=== PATIENT | female | born 1970 | race Caucasian/White ===

== ENCOUNTER → 2018-03-07 13:23 | Outpatient (CLI) | payer OTHER, SELFPAY ==
--- NOTE | 2018-03-07 13:24 | DI.MRI.S_ITS ---
PROCEDURE: MR LUMBAR SPINE WO CON INDICATIONS: Acute lumbar radiculopathy TECHNIQUE: Noncontrast sagittal T1 spin echo and T2 fast echo, sagittal STIR, axial T1 and T2 fast spin echo through the lumbar spine. In cases with scoliosis, additional coronal T2 fast spin echo may be performed. COMPARISON: [facility], MR, L-SPINE WITHOUT CONTRAST, 03/10/2010, 7:08. [facility], CT, ABDOMEN/PELVIS WITH CONTRAST, 06/27/2010, 19:21. FINDINGS: Image quality: Excellent. Alignment and Curvature: There is loss of normal lumbar lordosis. There is minimal, grade 1 retrolisthesis of L3 on L4 and L5 on S1. Bone Marrow: Marrow is of normal overall signal. No acute vertebral body compression fractures. Mild reactive signal within the endplates adjacent to the L3-L4, L4-L5, and L5-S1 intervertebral discs is present. Spinal Cord: Conus medullaris terminates at the L1-L2 disc space level. Visualized cord demonstrates normal signal and size. Paraspinous Soft Tissues: No paravertebral masses. L1-L2: Normal appearance. L2-L3: Mild facet and ligament flavum hypertrophy. No significant canal, nor foraminal stenosis. No change. L3-L4: Moderate disc desiccation. Mild diffuse disc bulge a superimposed small central protrusion. Mild bilateral facet hypertrophy. Increased, mild canal stenosis. No foraminal stenosis. L4-L5: Moderate disc desiccation. Mild diffuse disc bulge with superimposed broad-based right far lateral protrusion. Mild bilateral facet hypertrophy. Mild canal stenosis. Mild bilateral foraminal stenosis. L5-S1: Moderate disc desiccation. Mild diffuse disc bulge with superimposed small central protrusion. Mild bilateral facet hypertrophy. No significant canal stenosis. Mild foraminal stenosis bilaterally. No change. IMPRESSION: 1. Multilevel degenerative disc and facet disease, as well as ligamentum flavum hypertrophy and epidural lipomatosis. 2. Mild multilevel canal and foraminal stenoses. No neural impingement. Dictated by: Krishan Sung M.D. on 03/07/2018 at 14:37 Approved by: Krishan Sung M.D. on 03/07/2018 at 14:45
== END ==
PROVIDERS: Family Provider Family Medicine; PCP Family Medicine; Visit Provider Registered Nurse
DX: M51.16 Intervertebral disc disorders with radiculopathy, lumbar region (principal); M51.17 Intervertebral disc disorders with radiculopathy, lumbosacral region; E88.2 Lipomatosis, not elsewhere classified; M48.061 Spinal stenosis, lumbar region without neurogenic claudication; M48.07 Spinal stenosis, lumbosacral region
CPT/HCPCS: 72148

== ENCOUNTER 2018-04-18 08:50 | Emergency (ER) | payer OTHER, SELFPAY ==
[2018-04-18 09:03] VITALS: BP 158/97; PULSE 109; RESP 16; TEMP 37.2; O2SAT 99; BMI 32.8
--- NOTE | 2018-04-18 10:01 | ED_ITS ---
HPI - Back Pain/Injury General Chief Complaint: Back Pain/Injury Stated Complaint: SPINAL INJURY Time Seen by Provider: 04/18/18 09:47 Source: patient Mode of arrival: ambulatory Limitations: no limitations History of Present Illness HPI Narrative: Patient is a 47-year-old female who presents with back pain. She says she injured it about a month ago she was doing well until 2 days ago when her dog hit her. She now has significant pain down her left leg. No changes in bowel or bladder habits. She says the numbness tingling sharp shooting pain goes down the front of her leg. She said is quite unbearable. She has been taking ibuprofen 600 mg as needed and it does not seem to be helping. MD Complaint: back pain Related Data Home Medications Medication Instructions Recorded Confirmed omega-3 acid ethyl esters [Lovaza] 1 gm PO QDAY #0 10/16/12 02/28/18 pyridoxine (vitamin B6) #0 10/16/12 02/28/18 Previous Rx's Medication Instructions Recorded hydrocodone 5 mg-acetaminophen 325 1 tab PO Q6H PRN #30 tab 03/03/18 mg tablet diazepam [Valium] 5 mg PO BID PRN #10 tab 04/18/18 diazepam [Valium] 5 mg PO Q12HR PRN #10 tab 04/18/18 meloxicam [Mobic] 7.5 mg PO DAILY PRN #20 tab 04/18/18 meloxicam [Mobic] 7.5 mg PO DAILY PRN #30 tab 04/18/18 prednisone 40 mg PO DAILY #10 tab 04/18/18 Allergies Allergy/AdvReac Type Severity Reaction Status Date / Time Penicillins [PENICILLINS] Allergy Unknown Verified 04/18/18 09:16 Review of Systems Review of Systems GENERAL: Denies chills, fatigue, malaise, fever, sweats, travel HEENT: Denies sinus pain, ear pain, sore throat, difficulty swallowing, neck pain RESPIRATORY: Denies dyspnea, cough, wheezing, hemoptysis, sputum. CARDIOVASCULAR: Denies chest pain, palpitations, orthopnea, edema GASTROINTESTINAL: Denies nausea, vomiting, abdominal pain, diarrhea, constipation, melena. : Denies dysuria, frequency, incontinence, hematuria, urinary retention, flank pain. MUSCULOSKELETAL: See HPI SKIN: No rash, no erythema, no pruritus NEUROLOGIC: Denies weakness, dizziness, headache, numbness, change in speech, confusion PSYCHIATRIC: No concerning psychosocial issues. 12 point review of systems is negative except for those stated above and HPI PFSH Medical History Cervical spine disease (Chronic) Foot pain (Chronic 2011) Hayfever (Chronic) History of heavy periods (Chronic) Lump in neck (Chronic 07/2015) Migraines (Chronic 2006) PTSD (post-traumatic stress disorder) (Chronic) Painful menstrual periods (Chronic) Abnormal Pap smear of cervix (Resolved ~2004) Chicken pox (Resolved 1978) Ectopic (Resolved 2005) HPV (human papilloma virus) infection (Resolved) Ovarian cyst (Resolved 11/2015) PID (acute pelvic inflammatory disease) (Resolved 11/21/15) Plantar fasciitis (Resolved 2011) Plantar warts (Resolved) Surgical History Anesthesia complication (Resolved) History of unilateral salpingectomy (Resolved 2005) Status post cholecystectomy (Resolved 2004) Family History Grandmother Parkinson's disease Broken hip Father Gangrene Mother Stroke Grandfather Brain tumor Sister No problems noted. Sister No problems noted. Grandmother No problems noted. Social History Smoking Status: Current some day smoker alcohol intake: never substance use type: does not use Family History Grandmother Parkinson's disease Broken hip Father Gangrene Mother Stroke Grandfather Brain tumor Sister No problems noted. Sister No problems noted. Grandmother No problems noted. Social History Smoking Status: Current some day smoker alcohol intake: never substance use type: does not use Exam Initial Vital Signs Initial Vital Signs: Vital Signs Temperature 98.9 F 04/18/18 09:03 Pulse Rate 109 H 04/18/18 09:03 Respiratory Rate 16 04/18/18 09:03 Blood Pressure 158/97 H 04/18/18 09:03 Pulse Oximetry 99 04/18/18 09:03 GENERAL: Overweight lying on right side appears in pain CARDIOVASCULAR: peripheral pulses in tact, cap refill <2 sec RESPIRATORY: No respiratory distress, speaks in full sentences without difficulty BACK: Mild midline vertebral tenderness no guarding no rebound no sign of trauma. Sensation in lower extremities intact. Deep tendon reflexes equal 2/4 EXTREMITIES: Normal range of motion, no clubbing or edema. Neurovascularly intact NEUROLOGICAL: Cranial nerves II through XII grossly intact. Normal gait and speech. SKIN: Warm, dry, no petechiae, no rashes or lesions. Course Orders Ordered: Discontinued Medications Diazepam (Valium) 5 mg PO NOW ONE Stop: 04/18/18 09:52 Last Admin: 04/18/18 10:14 Dose: 5 mg Ketorolac Tromethamine (Toradol) 60 mg IM NOW ONE Stop: 04/18/18 09:52 Last Admin: 04/18/18 10:14 Dose: 60 mg Vital Signs - 8 hr 04/18/18 09:03 04/18/18 10:50 Temperature 98.9 F Pulse Rate 109 H 79 Respiratory Rate 16 16 Blood Pressure 158/97 H Blood Pressure [Left Arm] 148/84 H Pulse Oximetry 99 97 MDM - Back Pain/Injury MDM Narrative Medical decision making narrative: Discussed with patient light activity and stretching such as yoga. We discussed warning signs and when to return to the ED. Discharge Plan Departure Patient Disposition: Home Clinical Impression: Lumbar radiculopathy, Back pain Discharge Date/Time: 04/18/18 11:32 Interventions: ED Discharge Assessment Last Done: 04/18/18 11:26 Instructions: Low Back Pain Activity Restrictions/Additional Instructions: *You have been diagnosed with low back pain with radiculopathy *What to do: Increase activity as tolerated, light activity is encouraged, heating pad *Continue to take medications as directed--> faxed to [facility] in [place] Mobic 7.5mg once a day-do not combine with other NSAIDs such as Motrin, ibuprofen, naproxen etc Valium 5 mg every 12 hr if needed for severe muscle spasm do not drive while taking Prednisone 40 mg once a day for 5 days *Follow up with your primary care provider in 2-3 days *Return to ER if you should have increasing weakness, loss of urine or stool, or any new, worsening or concerning symptoms Prescriptions: New meloxicam [Mobic] 7.5 mg tablet 7.5 mg PO DAILY PRN (Reason: pain (scale score 4-6)) Qty: 30 RF: 0 diazepam [Valium] 5 mg tablet 5 mg PO Q12HR PRN (Reason: muscle spasm) Qty: 10 RF: 0 prednisone 20 mg tablet 40 mg PO DAILY Qty: 10 RF: 0 meloxicam [Mobic] 7.5 mg tablet 7.5 mg PO DAILY PRN (Reason: pain (scale score 4-6)) Qty: 20 RF: 0 diazepam [Valium] 5 mg tablet 5 mg PO BID PRN (Reason: muscle spasm) Qty: 10 RF: 0 Discontinued dexamethasone [Decadron] 4 mg tablet See Label Instructions PO ONCE Qty: 12 RF: 0 No Action omega-3 acid ethyl esters [Lovaza] 1 GM capsule 1 gm PO QDAY Qty: 0 RF: 0 pyridoxine (vitamin B6) 25 MG tablet Qty: 0 RF: 0 hydrocodone-acetaminophen 5-325 mg tablet 1 tab PO Q6H PRN (Reason: pain) Qty: 30 RF: 0 Referrals: Isabel Sadler DO [Primary Care Provider] -
[2018-04-18] MEDS: KETOROLAC 60 MG/2 ML VIAL IM (10:14)
[2018-04-18] MEDS: diazePAM 5 MG TABLET PO (10:14)
[2018-04-18 10:50] VITALS: BP 148/84; PULSE 79; RESP 16; O2SAT 97
== END 2018-04-18 11:32 | disposition home or self-care (01) ==
PROVIDERS: Emergency Provider Emergency Medicine; Family Provider Family Medicine; PCP Family Medicine
DX: M54.16 Radiculopathy, lumbar region (principal)
CPT/HCPCS: 96372; 99282; 99283; J1885

== ENCOUNTER 2018-04-22 16:45 | Emergency (ER) | payer OTHER, SELFPAY ==
[2018-04-22 16:54] VITALS: BP 154/101; PULSE 96; RESP 14; TEMP 36.2; O2SAT 96; BMI 32.8
--- NOTE | 2018-04-22 18:37 | DI.RAD.S_ITS ---
PROCEDURE: XR HIP W PEL IF DONE RT 2V INDICATIONS: CHRONIC PAIN TECHNIQUE: 2 views of the hip were acquired. COMPARISON: None. FINDINGS: Bones: No fractures or dislocations. No suspicious bony lesions. The visualized pelvic ring appears intact. Soft tissues: No suspicious soft tissue calcifications or masses. IMPRESSION: No hip fracture or dislocation. No evidence of avascular necrosis. Dictated by: Anthony Connolly M.D. on 04/22/2018 at 19:13 Approved by: Anthony Connolly M.D. on 04/22/2018 at 19:14
--- NOTE | 2018-04-22 18:51 | ED.BACK ---
HPI - Back Pain/Injury <CAYDEN Correia - Last Filed: 04/22/18 22:05> General Chief Complaint: Back Pain/Injury Stated Complaint: States something going on with sciatica Time Seen by Provider: 04/22/18 18:43 Source: patient Mode of arrival: ambulatory Limitations: no limitations History of Present Illness HPI Narrative: 47-year-old female history of fibromyalgia here for complaint of pain into her left lower back area and to her left hip area. She was seen in the emergency room last week and was placed on a short course of prednisone Valium and Mobic for her symptoms. MRI that was completed in February shows radiculopathy and stenosis to the lumbar spine area. She reports that over week ago she was ran into by a dog onto her left hip. She reports that he she has decreased ability to ambulate due to pain to the left hip left lower back area. She also reports that the pain radiates down into her left lower leg. She denies any new trauma. She has not seen her primary care provider Orthopedics for this as of yet. No other concerns or complaints at this timeframe. No loss of bladder or bowel control. Related Data Home Medications Medication Instructions Recorded Confirmed omega-3 acid ethyl esters [Lovaza] 1 gm PO QDAY #0 10/16/12 02/28/18 pyridoxine (vitamin B6) #0 10/16/12 02/28/18 Previous Rx's Medication Instructions Recorded hydrocodone 5 mg-acetaminophen 325 1 tab PO Q6H PRN #30 tab 03/03/18 mg tablet diazepam [Valium] 5 mg PO BID PRN #10 tab 04/18/18 meloxicam [Mobic] 7.5 mg PO DAILY PRN #20 tab 04/18/18 prednisone 40 mg PO DAILY #10 tab 04/18/18 cyclobenzaprine 5 mg tablet 5 mg PO TID PRN #20 tab 04/19/18 cyclobenzaprine 10 mg PO TID PRN #20 tab 04/22/18 hydrocodone-acetaminophen [Cranberry] 1 tab PO Q6H PRN #10 tab 04/22/18 Allergies Allergy/AdvReac Type Severity Reaction Status Date / Time Penicillins [PENICILLINS] Allergy Unknown Verified 04/22/18 17:01 Review of Systems <CAYDEN Correia - Last Filed: 04/22/18 22:05> Constitutional Denies chills, Denies fever(s), Denies lethargy and Denies weakness Eyes Denies change in vision, Denies eye discharge, Denies irritation and Denies loss of vision ENT Ears, Nose, Mouth, and Throat: Denies change in voice, Denies neck pain and Denies sore throat Cardiovascular Denies chest pain, Denies irregular heart rhythm, Denies lightheadedness, Denies palpitations, Denies dyspnea, Denies dyspnea on exertion and Denies orthopnea Respiratory Denies cough, Denies dyspnea, Denies dyspnea on exertion and Denies wheezing Gastrointestinal Gastrointestinal: Denies abdominal pain, Denies change in bowel habits, Denies diarrhea, Denies nausea and Denies vomiting Genitourinary Denies hematuria, Denies flank pain, Denies urinary incontinence and Denies urinary urgency Musculoskeletal Denies neck pain Comments: Lower back and left hip pain Integumentary/Breasts Denies pruritus, Denies erythema, Denies rash and Denies wounds Neurologic Denies loss of vision and Denies weakness Endocrine Denies palpitations Hematologic/Lymphatic Denies easy bruising Allergic/Immunologic Denies wheezing Exam <CAYDEN Correia - Last Filed: 04/22/18 22:05> Initial Vital Signs Initial Vital Signs: Vital Signs Temperature 97.2 F L 04/22/18 16:54 Pulse Rate 96 H 04/22/18 16:54 Respiratory Rate 14 04/22/18 16:54 Blood Pressure 154/101 H 04/22/18 16:54 Pulse Oximetry 96 04/22/18 16:54 Const General: cooperative and well developed Nutritional Appearance: well nourished Orientation: alert, awake, oriented x3 and not confused [facility] Mouth: oral mucosae normal, oropharynx normal and moist mucous membranes Eyes Conjunctivae: conjunctivae normal Sclera: sclerae normal Pupils: PERRL EOM: EOM intact bilaterally Resp Effort & Inspection: normal respiratory effort, able to speak in complete sentences, no respiratory distress and no use of accessory muscles Auscultation: clear to auscultation bilaterally, no rales, no rhonchi and no wheezes Cardio Rate: regular rate Rhythm: regular rhythm Heart Sounds: no click, no gallops, no murmurs and no rubs Pulses: normal peripheral pulses Back/Spine/Pelvis Other: Lower back with no signs of trauma. No ecchymosis. Tenderness to the left lumbar paraspinal are distal sensation is intact. Distal pulses are intact. Distal range of motion is intact. a Skin General: no rashes or lesions noted, No jaundice and No petechiae Neuro General: alert, oriented x3, gait normal and no focal motor deficits Speech: speech normal Extrem Other: Left hip with no signs of trauma. No ecchymosis. No swelling. Distal sensation is intact. Distal range of motion is intact. Distal pulses are intact. <Marylou Floyd DO - Last Filed: 04/23/18 00:38> Initial Vital Signs Initial Vital Signs: Vital Signs Temperature 97.2 F L 04/22/18 16:54 Pulse Rate 96 H 04/22/18 16:54 Respiratory Rate 14 04/22/18 16:54 Blood Pressure 154/101 H 04/22/18 16:54 Pulse Oximetry 96 04/22/18 16:54 Course <CAYDEN Correia - Last Filed: 04/22/18 22:05> Orders Ordered: ED Orders 04/22/18 18:37 XR hip w pel if done RT 2V Stat 04/22/18 19:34 US periph venous low extrem lt Stat Discontinued Medications Cyclobenzaprine HCl (Flexeril) 10 mg PO NOW ONE Stop: 04/22/18 20:52 Last Admin: 04/22/18 20:57 Dose: 10 mg Vital Signs - 8 hr 04/22/18 16:54 04/22/18 19:14 04/22/18 21:21 Temperature 97.2 F L 97.7 F Pulse Rate 96 H 77 77 Respiratory Rate 14 18 18 Blood Pressure 154/101 H 147/94 H Blood Pressure [Left Arm] 145/79 H Pulse Oximetry 96 98 96 <DO Aissatou Melchor Last Filed: 04/23/18 00:38> Orders Ordered: ED Orders 04/22/18 18:37 XR hip w pel if done RT 2V Stat 04/22/18 19:34 US periph venous low extrem lt Stat Discontinued Medications Cyclobenzaprine HCl (Flexeril) 10 mg PO NOW ONE Stop: 04/22/18 20:52 Last Admin: 04/22/18 20:57 Dose: 10 mg Vital Signs - 8 hr 04/22/18 16:54 04/22/18 19:14 04/22/18 21:21 Temperature 97.2 F L 97.7 F Pulse Rate 96 H 77 77 Respiratory Rate 14 18 18 Blood Pressure 154/101 H 147/94 H Blood Pressure [Left Arm] 145/79 H Pulse Oximetry 96 98 96 MDM - Back Pain/Injury <CAYDEN Correia - Last Filed: 04/22/18 22:05> Imaging Data Left hip: Radiologist's impression: [address] [address] XRay Report Signed Patient: EnzoMadiha [facility]#: [id number] : 1970Acct:[id number] Age/Sex: 47 / FDate of Service: 04/22/18 Loc: ED Accession Number: [id number] Procedure: XR hip w pel if done RT 2V Ordering Provider: Marylou Floyd D.O. PROCEDURE: XR HIP W PEL IF DONE RT 2V INDICATIONS: CHRONIC PAIN TECHNIQUE: 2 views of the hip were acquired. COMPARISON: None. FINDINGS: Bones: No fractures or dislocations. No suspicious bony lesions. The visualized pelvic ring appears intact. Soft tissues: No suspicious soft tissue calcifications or masses. IMPRESSION: No hip fracture or dislocation. No evidence of avascular necrosis. Dictated by: Anthony Connolly M.D. on 04/22/2018 at 19:13 Approved by: Anthony Connolly M.D. on 04/22/2018 at 19:14 Venous US: Radiologist's impression: [address] [address] Ultrasound Report Signed Patient: EnzoMadiha [facility]#: [id number] : 1970Acct:[id number] Age/Sex: 47 / FDate of Service: 04/22/18 Loc: ED Accession Number: [id number] Procedure: US periph venous low extrem lt Ordering Provider: Carlos Mtz PROCEDURE: US PERIPH VENOUS LOW EXTREM LT INDICATIONS: PERSISTENT LEFT LEG PAIN TECHNIQUE: Real-time imaging, as well as color and pulse Doppler interrogation, were performed of the lower extremity deep veins from the inguinal ligament to the popliteal fossa. COMPARISON: None. FINDINGS: The deep veins are normally compressible, and free of intraluminal thrombus. Color and pulse Doppler demonstrate normal phasic intraluminal flow. There is normal augmentation response to distal compression maneuver. IMPRESSION: No evidence of DVT in the visualized left lower extremity veins. Dictated by: Anthony Connolly M.D. on 04/22/2018 at 20:26 Approved by: Anthony Connolly M.D. on 04/22/2018 at 20:29 [facility] Narrative Medical decision making narrative: X-ray of the left hip was obtained was negative for any acute fractures or findings. Ultrasound left lower extremity was obtained to rule out DVT it was also negative. Signs and symptoms presents exacerbation of a chronic lower back pain. She is prescribed cyclobenzaprine to help with any muscle spasm or tenderness. Small amount of Cranberry was provided for breakthrough pain. Not be used to conjunction with the cyclobenzaprine. Follow up with primary care provider later this week for re-evaluation. For any worsening symptoms return to the emergency room. Discharge Plan Departure Patient Disposition: Home Clinical Impression: Lower back pain Discharge Date/Time: 04/22/18 21:23 Interventions: ED Discharge Assessment Last Done: 04/22/18 21:21 Instructions: DI for Low Back Pain Activity Restrictions/Additional Instructions: X-ray of the left hip was obtained was negative for any acute fractures or dislocations. Ultrasound left lower extremity was obtained was negative for any clots. Signs and symptoms presents as exacerbating of chronic lumbar pain. Follow up with primary care provider next week. Due to chronic nature of pain may be helpful to have referral to Orthopedics. Physical therapy may also be helpful. Year prescribed a muscle relaxer called cyclobenzaprine use as directed. Small amount of Cranberry is provided for breakthrough pain not covered by Tylenol do not use in conjunction with the muscle relaxer. For any worsening symptoms return to the emergency room. Gentle range of motion to painful areas to keep muscles loose. Rest area. Prescriptions: New cyclobenzaprine 10 mg tablet 10 mg PO TID PRN (Reason: muscle spasm) Qty: 20 RF: 0 hydrocodone-acetaminophen [Cranberry] 5-325 mg tablet 1 tab PO Q6H PRN (Reason: pain) Qty: 10 RF: 0 No Action omega-3 acid ethyl esters [Lovaza] 1 GM capsule 1 gm PO QDAY Qty: 0 RF: 0 pyridoxine (vitamin B6) 25 MG tablet Qty: 0 RF: 0 hydrocodone-acetaminophen 5-325 mg tablet 1 tab PO Q6H PRN (Reason: pain) Qty: 30 RF: 0 cyclobenzaprine 5 mg tablet 5 mg PO TID PRN (Reason: muscle spasm) Qty: 20 RF: 0 prednisone 20 mg tablet 40 mg PO DAILY Qty: 10 RF: 0 meloxicam [Mobic] 7.5 mg tablet 7.5 mg PO DAILY PRN (Reason: pain (scale score 4-6)) Qty: 20 RF: 0 diazepam [Valium] 5 mg tablet 5 mg PO BID PRN (Reason: muscle spasm) Qty: 10 RF: 0 Referrals: Isabel Sadler DO [Primary Care Provider] - <Marylou Floyd DO - Last Filed: 04/23/18 00:38> Cosign ED Attending Brookeature Attestation: I was immediately available in the department for consultation. Documentation has been reviewed. I agree with assessment and plan.
--- NOTE | 2018-04-22 18:56 | ED_ITS ---
HPI - Back Pain/Injury <CAYDEN Correia - Last Filed: 04/22/18 22:05> General Chief Complaint: Back Pain/Injury Stated Complaint: States something going on with sciatica Time Seen by Provider: 04/22/18 18:43 Source: patient Mode of arrival: ambulatory Limitations: no limitations History of Present Illness HPI Narrative: 47-year-old female history of fibromyalgia here for complaint of pain into her left lower back area and to her left hip area. She was seen in the emergency room last week and was placed on a short course of prednisone Valium and Mobic for her symptoms. MRI that was completed in February shows radiculopathy and stenosis to the lumbar spine area. She reports that over week ago she was ran into by a dog onto her left hip. She reports that he she has decreased ability to ambulate due to pain to the left hip left lower back area. She also reports that the pain radiates down into her left lower leg. She denies any new trauma. She has not seen her primary care provider Orthopedics for this as of yet. No other concerns or complaints at this timeframe. No loss of bladder or bowel control. Related Data Home Medications Medication Instructions Recorded Confirmed omega-3 acid ethyl esters [Lovaza] 1 gm PO QDAY #0 10/16/12 02/28/18 pyridoxine (vitamin B6) #0 10/16/12 02/28/18 Previous Rx's Medication Instructions Recorded hydrocodone 5 mg-acetaminophen 325 1 tab PO Q6H PRN #30 tab 03/03/18 mg tablet diazepam [Valium] 5 mg PO BID PRN #10 tab 04/18/18 meloxicam [Mobic] 7.5 mg PO DAILY PRN #20 tab 04/18/18 prednisone 40 mg PO DAILY #10 tab 04/18/18 cyclobenzaprine 5 mg tablet 5 mg PO TID PRN #20 tab 04/19/18 cyclobenzaprine 10 mg PO TID PRN #20 tab 04/22/18 hydrocodone-acetaminophen [Belle] 1 tab PO Q6H PRN #10 tab 04/22/18 Allergies Allergy/AdvReac Type Severity Reaction Status Date / Time Penicillins [PENICILLINS] Allergy Unknown Verified 04/22/18 17:01 Review of Systems <CAYDEN Correia - Last Filed: 04/22/18 22:05> Constitutional Denies chills, Denies fever(s), Denies lethargy and Denies weakness Eyes Denies change in vision, Denies eye discharge, Denies irritation and Denies loss of vision ENT Ears, Nose, Mouth, and Throat: Denies change in voice, Denies neck pain and Denies sore throat Cardiovascular Denies chest pain, Denies irregular heart rhythm, Denies lightheadedness, Denies palpitations, Denies dyspnea, Denies dyspnea on exertion and Denies orthopnea Respiratory Denies cough, Denies dyspnea, Denies dyspnea on exertion and Denies wheezing Gastrointestinal Gastrointestinal: Denies abdominal pain, Denies change in bowel habits, Denies diarrhea, Denies nausea and Denies vomiting Genitourinary Denies hematuria, Denies flank pain, Denies urinary incontinence and Denies urinary urgency Musculoskeletal Denies neck pain Comments: Lower back and left hip pain Integumentary/Breasts Denies pruritus, Denies erythema, Denies rash and Denies wounds Neurologic Denies loss of vision and Denies weakness Endocrine Denies palpitations Hematologic/Lymphatic Denies easy bruising Allergic/Immunologic Denies wheezing Exam <CAYDEN Correia - Last Filed: 04/22/18 22:05> Initial Vital Signs Initial Vital Signs: Vital Signs Temperature 97.2 F L 04/22/18 16:54 Pulse Rate 96 H 04/22/18 16:54 Respiratory Rate 14 04/22/18 16:54 Blood Pressure 154/101 H 04/22/18 16:54 Pulse Oximetry 96 04/22/18 16:54 Const General: cooperative and well developed Nutritional Appearance: well nourished Orientation: alert, awake, oriented x3 and not confused [facility] Mouth: oral mucosae normal, oropharynx normal and moist mucous membranes Eyes Conjunctivae: conjunctivae normal Sclera: sclerae normal Pupils: PERRL EOM: EOM intact bilaterally Resp Effort & Inspection: normal respiratory effort, able to speak in complete sentences, no respiratory distress and no use of accessory muscles Auscultation: clear to auscultation bilaterally, no rales, no rhonchi and no wheezes Cardio Rate: regular rate Rhythm: regular rhythm Heart Sounds: no click, no gallops, no murmurs and no rubs Pulses: normal peripheral pulses Back/Spine/Pelvis Other: Lower back with no signs of trauma. No ecchymosis. Tenderness to the left lumbar paraspinal are distal sensation is intact. Distal pulses are intact. Distal range of motion is intact. a Skin General: no rashes or lesions noted, No jaundice and No petechiae Neuro General: alert, oriented x3, gait normal and no focal motor deficits Speech: speech normal Extrem Other: Left hip with no signs of trauma. No ecchymosis. No swelling. Distal sensation is intact. Distal range of motion is intact. Distal pulses are intact. <Marylou Floyd DO - Last Filed: 04/23/18 00:38> Initial Vital Signs Initial Vital Signs: Vital Signs Temperature 97.2 F L 04/22/18 16:54 Pulse Rate 96 H 04/22/18 16:54 Respiratory Rate 14 04/22/18 16:54 Blood Pressure 154/101 H 04/22/18 16:54 Pulse Oximetry 96 04/22/18 16:54 Course <CAYDEN Correia - Last Filed: 04/22/18 22:05> Orders Ordered: ED Orders 04/22/18 18:37 XR hip w pel if done RT 2V Stat 04/22/18 19:34 US periph venous low extrem lt Stat Discontinued Medications Cyclobenzaprine HCl (Flexeril) 10 mg PO NOW ONE Stop: 04/22/18 20:52 Last Admin: 04/22/18 20:57 Dose: 10 mg Vital Signs - 8 hr 04/22/18 16:54 04/22/18 19:14 04/22/18 21:21 Temperature 97.2 F L 97.7 F Pulse Rate 96 H 77 77 Respiratory Rate 14 18 18 Blood Pressure 154/101 H 147/94 H Blood Pressure [Left Arm] 145/79 H Pulse Oximetry 96 98 96 <DO Aissatou Melchor Last Filed: 04/23/18 00:38> Orders Ordered: ED Orders 04/22/18 18:37 XR hip w pel if done RT 2V Stat 04/22/18 19:34 US periph venous low extrem lt Stat Discontinued Medications Cyclobenzaprine HCl (Flexeril) 10 mg PO NOW ONE Stop: 04/22/18 20:52 Last Admin: 04/22/18 20:57 Dose: 10 mg Vital Signs - 8 hr 04/22/18 16:54 04/22/18 19:14 04/22/18 21:21 Temperature 97.2 F L 97.7 F Pulse Rate 96 H 77 77 Respiratory Rate 14 18 18 Blood Pressure 154/101 H 147/94 H Blood Pressure [Left Arm] 145/79 H Pulse Oximetry 96 98 96 MDM - Back Pain/Injury <CAYDEN Correia - Last Filed: 04/22/18 22:05> Imaging Data Left hip: Radiologist's impression: [address] [address] XRay Report Signed Patient: EnzoMadiha [facility]#: [id number] : 1970Acct:[id number] Age/Sex: 47 / FDate of Service: 04/22/18 Loc: ED Accession Number: [id number] Procedure: XR hip w pel if done RT 2V Ordering Provider: Marylou Floyd D.O. PROCEDURE: XR HIP W PEL IF DONE RT 2V INDICATIONS: CHRONIC PAIN TECHNIQUE: 2 views of the hip were acquired. COMPARISON: None. FINDINGS: Bones: No fractures or dislocations. No suspicious bony lesions. The visualized pelvic ring appears intact. Soft tissues: No suspicious soft tissue calcifications or masses. IMPRESSION: No hip fracture or dislocation. No evidence of avascular necrosis. Dictated by: Anthony Connolly M.D. on 04/22/2018 at 19:13 Approved by: Anthony Connolly M.D. on 04/22/2018 at 19:14 Venous US: Radiologist's impression: [address] [address] Ultrasound Report Signed Patient: EnzoMadiha [facility]#: [id number] : 1970Acct:[id number] Age/Sex: 47 / FDate of Service: 04/22/18 Loc: ED Accession Number: [id number] Procedure: US periph venous low extrem lt Ordering Provider: Carlos Mtz PROCEDURE: US PERIPH VENOUS LOW EXTREM LT INDICATIONS: PERSISTENT LEFT LEG PAIN TECHNIQUE: Real-time imaging, as well as color and pulse Doppler interrogation, were performed of the lower extremity deep veins from the inguinal ligament to the popliteal fossa. COMPARISON: None. FINDINGS: The deep veins are normally compressible, and free of intraluminal thrombus. Color and pulse Doppler demonstrate normal phasic intraluminal flow. There is normal augmentation response to distal compression maneuver. IMPRESSION: No evidence of DVT in the visualized left lower extremity veins. Dictated by: Anthony Connolly M.D. on 04/22/2018 at 20:26 Approved by: Anthony Connolly M.D. on 04/22/2018 at 20:29 [facility] Narrative Medical decision making narrative: X-ray of the left hip was obtained was negative for any acute fractures or findings. Ultrasound left lower extremity was obtained to rule out DVT it was also negative. Signs and symptoms presents exacerbation of a chronic lower back pain. She is prescribed cyclobenzaprine to help with any muscle spasm or tenderness. Small amount of Belle was provided for breakthrough pain. Not be used to conjunction with the cyclobenzaprine. Follow up with primary care provider later this week for re-evaluation. For any worsening symptoms return to the emergency room. Discharge Plan Departure Patient Disposition: Home Clinical Impression: Lower back pain Discharge Date/Time: 04/22/18 21:23 Interventions: ED Discharge Assessment Last Done: 04/22/18 21:21 Instructions: DI for Low Back Pain Activity Restrictions/Additional Instructions: X-ray of the left hip was obtained was negative for any acute fractures or dislocations. Ultrasound left lower extremity was obtained was negative for any clots. Signs and symptoms presents as exacerbating of chronic lumbar pain. Follow up with primary care provider next week. Due to chronic nature of pain may be helpful to have referral to Orthopedics. Physical therapy may also be helpful. Year prescribed a muscle relaxer called cyclobenzaprine use as directed. Small amount of Belle is provided for breakthrough pain not covered by Tylenol do not use in conjunction with the muscle relaxer. For any worsening symptoms return to the emergency room. Gentle range of motion to painful areas to keep muscles loose. Rest area. Prescriptions: New cyclobenzaprine 10 mg tablet 10 mg PO TID PRN (Reason: muscle spasm) Qty: 20 RF: 0 hydrocodone-acetaminophen [Belle] 5-325 mg tablet 1 tab PO Q6H PRN (Reason: pain) Qty: 10 RF: 0 No Action omega-3 acid ethyl esters [Lovaza] 1 GM capsule 1 gm PO QDAY Qty: 0 RF: 0 pyridoxine (vitamin B6) 25 MG tablet Qty: 0 RF: 0 hydrocodone-acetaminophen 5-325 mg tablet 1 tab PO Q6H PRN (Reason: pain) Qty: 30 RF: 0 cyclobenzaprine 5 mg tablet 5 mg PO TID PRN (Reason: muscle spasm) Qty: 20 RF: 0 prednisone 20 mg tablet 40 mg PO DAILY Qty: 10 RF: 0 meloxicam [Mobic] 7.5 mg tablet 7.5 mg PO DAILY PRN (Reason: pain (scale score 4-6)) Qty: 20 RF: 0 diazepam [Valium] 5 mg tablet 5 mg PO BID PRN (Reason: muscle spasm) Qty: 10 RF: 0 Referrals: Isabel Sadler DO [Primary Care Provider] - <Marylou Floyd DO - Last Filed: 04/23/18 00:38> Cosign ED Attending Brookeature Attestation: I was immediately available in the department for consultation. Documentation has been reviewed. I agree with assessment and plan.
[2018-04-22 19:14] VITALS: BP 145/79; PULSE 77; RESP 18; O2SAT 98
--- NOTE | 2018-04-22 19:34 | DI.US.S_ITS ---
PROCEDURE: US PERIPH VENOUS LOW EXTREM LT INDICATIONS: PERSISTENT LEFT LEG PAIN TECHNIQUE: Real-time imaging, as well as color and pulse Doppler interrogation, were performed of the lower extremity deep veins from the inguinal ligament to the popliteal fossa. COMPARISON: None. FINDINGS: The deep veins are normally compressible, and free of intraluminal thrombus. Color and pulse Doppler demonstrate normal phasic intraluminal flow. There is normal augmentation response to distal compression maneuver. IMPRESSION: No evidence of DVT in the visualized left lower extremity veins. Dictated by: Anthony Connolly M.D. on 04/22/2018 at 20:26 Approved by: Anthony Connolly M.D. on 04/22/2018 at 20:29
[2018-04-22] MEDS: CYCLOBENZAPRINE 10 MG TABLET PO (20:57)
[2018-04-22 21:21] VITALS: BP 147/94; PULSE 77; RESP 18; TEMP 36.5; O2SAT 96
== END 2018-04-22 21:23 | disposition home or self-care (01) ==
PROVIDERS: Emergency Provider Nurse Practitioner Family; Family Provider Family Medicine; PCP Family Medicine
DX: M54.5 Low back pain (principal)
CPT/HCPCS: 73502; 93971; 99282; 99284

== ENCOUNTER 2018-05-06 09:45 | Outpatient (RCR) | payer OTHER, SELFPAY ==
--- NOTE | 2018-05-03 17:15 | PT.OIE ---
Current Diagnoses Pain in left hip (05/03/18) Sciatica, left side (05/03/18) Lumbago with sciatica, left side (05/03/18) Dorsalgia, unspecified (05/03/18) Muscle weakness (generalized) (05/03/18) Past Medical History (Last Reviewed 04/22/18 @ 19:46 by CAYDEN Correia) Cervical spine disease (Chronic) Foot pain (Chronic 2011) Hayfever (Chronic) History of heavy periods (Chronic) Lump in neck (Chronic 07/2015) Migraines (Chronic 2006) PTSD (post-traumatic stress disorder) (Chronic) Painful menstrual periods (Chronic) Abnormal Pap smear of cervix (Resolved ~2004) Chicken pox (Resolved 1978) Ectopic (Resolved 2005) HPV (human papilloma virus) infection (Resolved) Ovarian cyst (Resolved 11/2015) PID (acute pelvic inflammatory disease) (Resolved 11/21/15) Plantar fasciitis (Resolved 2011) Plantar warts (Resolved) Past Surgical History (Last Reviewed 04/22/18 @ 19:46 by CAYDEN Correia) Anesthesia complication (Resolved) History of unilateral salpingectomy (Resolved 2005) Status post cholecystectomy (Resolved 2004) Provider Visit Care Team Role Provider Type Isabel Sadler DO Attending Provider Physician Primary Care Provider Specialty: Family Practice Address: [address] [place] [address], [facility] Email: [email or web address] Physical Therapy Initial Evaluation PT-OP-A Visit Information Start: 05/03/18 14:48 Freq: Status: Active Protocol: Document 05/03/18 13:45 DCW (Rec: 05/03/18 17:15 DCW [id number]) Out-Patient Physical Therapy Visit Information Visit Information Visit Type Initial Evaluation Visit Start Time 13:45 Visit Stop Time 14:35 Total Visit Minutes 50 Visit Number 1 Evaluation Information Evaluation Date 05/03/18 PT-OP-B Current Condition Start: 05/03/18 14:48 Freq: Status: Active Protocol: Document 05/03/18 13:45 DCW (Rec: 05/03/18 17:15 DCW [id number]) Current Condition History of Current Condition Onset Date 2 Months Current Complaints Severe radicular left back/hip pain History of Current Condition Pt is a 47 year old female presenting with a two month history of back and hip pain, complete with radicular symptoms along her posterior hip, wrapping along her lateral thigh to her anterior knee and occasionally down her anterior [place]. Pt additionally reports pain in her anterior hip/groin. Pt reports this began before , when she was arranging furniture and helping set up their large tree, admits she probable lifted way too much, and then the following day, bent down to clean her fridge, felt something go, and had severe pain and could not stand up. Pt had a lumbar MRI, which uncovered mild disc desiccations and bulges, but nothing that was felt would result in her current symptoms . Pt notes that she was improving, and was probably almost 85% better, unfortunately her large dog ran into her two weeks ago, knocking her over, and she now feels like she is worse than before. Pt attempted to see a chiropractor, however two different practitioners refused to treat her and recommended she go to the ER for assessment for fractures. Resulting x-rays of the spine and hips were negative. Pt reports she can barely walk, and attended today's session using old crutches from her son that were 4-6 inches too short. 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 Pt reports fully straightening her hip or laying flat on her back results in L LE numbness and throbbing pain. Prior Treatments and Tests MRI: 1. Multilevel degenerative disc and facet disease, as well as ligamentum flavum hypertrophy and epidural lipomatosis. 2. Mild multilevel canal and foraminal stenoses. No neural impingement. - bart Sung M.D. on 03/07/2018 X-rays: No hip fracture or dislocation. No evidence of avascular necrosis. - per Atnhony Connolly M.D. on 04/22/2018 Treatment Goals Patient/Caregiver Goals Pt wants to decrease incidence of LE radiating pain and numbness Prior Functional Status Baseline Function- ADL's Independent Baseline Function- Mobility Independent Current Functional Impairments (Reported) Functional Limitations- ADL's Unable to stand more than 5 minutes without pain, difficulty showering Functional Limitations- Mobility/Gait Ambulates with ill-fitting axillary crutches PT-OP-C Subjective Start: 05/03/18 14:48 Freq: Status: Active Protocol: Document 05/03/18 13:45 DCW (Rec: 05/03/18 17:15 DCW [id number]) OP-PT Subjective Patient Comments Patient Comments My actual low back is not too bad anymore, but the pain in my hip and down my leg makes it so I can't do anything. Patient Reported Progress Improving Patient Questionnaires Oswestry Low Back Index Oswestry Score 38/45 = 84% OP-PT Pain Assessment Pain Assessment Grid Paper Pain Assessment Grid Completed Yes Location Left Posterior Hip Pain Location Details Radicular pain posterior hip to anterior knee/calf Intensity 10 Scale Used Numeric (1 - 10) PT-OP-F Manual Assessment Start: 05/03/18 14:48 Freq: Status: Active Protocol: Document 05/03/18 13:45 DCW (Rec: 05/03/18 17:15 DCW [id number]) Manual Assessments Soft Tissue Assessment Soft Tissue Mobility Assessment Tenderness to palpation: 4/4 - Palpation not allowed at left Piriformis, QL, and Psoas Joint Mobility Assessment Joint Mobility Assessment Pt cannot tolerate any passive ROM of left hip PT-OP-J Posture/Palpation/Skin Start: 05/03/18 14:48 Freq: Status: Active Protocol: Document 05/03/18 13:45 DCW (Rec: 05/03/18 17:15 DCW [id number]) Palpation Assessment Location One Palpation Location Left Piriformis Palpation Findings Soft Tissue Tightness Spasm Muscle Guarding Tenderness Trigger Point Palpation Details Increased radicular symptoms with palpation PT-OP-K Range of Motion Start: 05/03/18 14:48 Freq: Status: Active Protocol: Document 05/03/18 13:45 DCW (Rec: 05/03/18 17:15 DCW [id number]) Hip Goniometric Range of Motion Hip ROM Limitations Hip ROM Limitations Muscle Weakness Muscle Tone Pain Comments Pt unable to tolerate any passive ROM, pt most comfortable in semi-flexed position (~60?) PT-OP-L Special Tests Start: 05/03/18 14:48 Freq: Status: Active Protocol: Document 05/03/18 13:45 DCW (Rec: 05/03/18 17:15 DCW [id number]) Special Tests Hip Special Tests Hip Traction Test Results Increased pain Piriformis Test Results Unable to position Straight Leg Raise Test Results Unable to position Scour Test Test Results Unable to position YOEL Test Results Unable to position PT-OP-M Strength Start: 05/03/18 14:48 Freq: Status: Active Protocol: Document 05/03/18 13:45 DCW (Rec: 05/03/18 17:15 DCW [id number]) Hip Strength Hip Manual Muscle Testing Right Flexion (L2) 5 Normal Abduction 5 Normal Adduction 5 Normal External Rotation 4+ Good+ Internal Rotation 4+ Good+ Left Flexion (L2) 3 Fair Abduction 5 Normal Adduction 5 Normal External Rotation 4 Good Internal Rotation 4 Good PT-OP-Q Treatments Start: 05/03/18 14:48 Freq: Status: Active Protocol: Document 05/03/18 13:45 DCW (Rec: 05/03/18 17:15 DCW [id number]) Therapeutic Exercises Supine Exercises Psoas stretch Supine Exercise Name LE hang off table Side left Sitting Exercises Piriformis Stretch Sitting Exercise Name Seated figure-4 Side left PT-OP-T Assessment and Plan Start: 05/03/18 14:48 Freq: Status: Active Protocol: Document 05/03/18 13:45 DCW (Rec: 05/03/18 17:15 DCW [id number]) Physical Therapy Assessment Rehab Potential Rehabilitation Potential Fair Evaluation Complexity Number of Personal Factors/Comorbidities 3 or More Number of Body Systems Impaired 4 or More Clinical Presentation at Evaluation Unstable Impairments Impairments Activity Tolerance Functional Activities Functional Mobility Gait Pain Posture ROM Sensation Soft Tissue Mobility Strength Tone Goals Three Impairment L hip flexion weakness Final Inspection Supervisor Goal (LTG) Pt to increase MMT from 3/5 to 4/5 on left hip flexion Two Impairment Pt unable to tolerate standing >5 minutes Final Inspection Supervisor Goal (LTG) Pt to tolerate standing 20 minutes without increased symptoms LTG Duration 07/01/18 One Impairment Pt does not have an appropriate home exercise program Short Term Goal (STG) Pt to be independent and complaint with and appropriate HEP STG Duration 05/31/18 Assessment Summary Assessment At this point, pt is nearly impossible to properly diagnose, as she was unable to tolerate any palpation more than light touch, and was unable to tolerate any positioning for special tests. Additionally, pt has been using axillary crutches to help her get around, however they are 4-5 inches too short. Recommended pt stop at [employer] to get more appropriate crutches. Pt's reported nerve pain pathway is suggestive of sciatic impingement, and with a relatively clean lumbar MRI and such intense pain in her posterior hip, pt may be suffering from Piriformis syndrome, and may be one of the 10% of the population which has a sciatic nerve which pierces through the piriformis muscle, resulting in a much more severe radicular pain and symptomology with piriformis spasm. This is unlikely to me causing all of her complaints, however with PT focusing on decreasing tone and tenderness in her Piriformis and Psoas, these secondary symptoms may start to fade, which would make a proper DDx easier to perform. Further testing may need to be done as symptoms change. Physical Therapy Plan Frequency and Duration Frequency of Treatment 2x/Week Duration of Treatment 10 weeks Plan of Care Start Date 05/03/18 Plan of Care End Date 07/12/18 Therapeutic Interventions Therapeutic Interventions Aquatic Therapy Gait Training Home Exercise Program Joint Mobilizations Manual Therapy Neuromuscular Re-education Patient/Caregiver Education Self-Care/Home Management Soft Tissue Mobilization Taping Therapeutic Activities Therapeutic Exercises Modalities Cold Pack/Ice Massage Electric Stimulation Hot Packs Ultrasound Next Visit Focus/Plan Next Note Type Treatment Note Next Visit Plan Flexibility, strengthening as tolerated, Pain-control modalities
--- NOTE | 2018-05-03 17:16 | PT.OPPOC ---
Current Diagnoses Pain in left hip (05/03/18) Sciatica, left side (05/03/18) Lumbago with sciatica, left side (05/03/18) Dorsalgia, unspecified (05/03/18) Muscle weakness (generalized) (05/03/18) Provider Visit Care Team Role Provider Type Isabel Sadler DO Attending Provider Physician Primary Care Provider Specialty: Family Practice Address: [address] [place] [address], [facility] Email: [email or web address] Plan Of Care PT-OP-T Assessment and Plan Start: 05/03/18 14:48 Freq: Status: Active Protocol: Document 05/03/18 13:45 DCW (Rec: 05/03/18 17:15 DCW [id number]) Physical Therapy Assessment Rehab Potential Rehabilitation Potential Fair Evaluation Complexity Number of Personal Factors/Comorbidities 3 or More Number of Body Systems Impaired 4 or More Clinical Presentation at Evaluation Unstable Impairments Impairments Activity Tolerance Functional Activities Functional Mobility Gait Pain Posture ROM Sensation Soft Tissue Mobility Strength Tone Goals Three Impairment L hip flexion weakness Licensed Marine Engineer Goal (LTG) Pt to increase MMT from 3/5 to 4/5 on left hip flexion Two Impairment Pt unable to tolerate standing >5 minutes Half-Way Goal (LTG) Pt to tolerate standing 20 minutes without increased symptoms LTG Duration 07/01/18 One Impairment Pt does not have an appropriate home exercise program Short Term Goal (STG) Pt to be independent and complaint with and appropriate HEP STG Duration 05/31/18 Assessment Summary Assessment At this point, pt is nearly impossible to properly diagnose, as she was unable to tolerate any palpation more than light touch, and was unable to tolerate any positioning for special tests. Additionally, pt has been using axillary crutches to help her get around, however they are 4-5 inches too short. Recommended pt stop at [employer] to get more appropriate crutches. Pt's reported nerve pain pathway is suggestive of sciatic impingement, and with a relatively clean lumbar MRI and such intense pain in her posterior hip, pt may be suffering from Piriformis syndrome, and may be one of the 10% of the population which has a sciatic nerve which pierces through the piriformis muscle, resulting in a much more severe radicular pain and symptomology with piriformis spasm. This is unlikely to me causing all of her complaints, however with PT focusing on decreasing tone and tenderness in her Piriformis and Psoas, these secondary symptoms may start to fade, which would make a proper DDx easier to perform. Further testing may need to be done as symptoms change. Physical Therapy Plan Frequency and Duration Frequency of Treatment 2x/Week Duration of Treatment 10 weeks Plan of Care Start Date 05/03/18 Plan of Care End Date 07/12/18 Therapeutic Interventions Therapeutic Interventions Aquatic Therapy Gait Training Home Exercise Program Joint Mobilizations Manual Therapy Neuromuscular Re-education Patient/Caregiver Education Self-Care/Home Management Soft Tissue Mobilization Taping Therapeutic Activities Therapeutic Exercises Modalities Cold Pack/Ice Massage Electric Stimulation Hot Packs Ultrasound Next Visit Focus/Plan Next Note Type Treatment Note Next Visit Plan Flexibility, strengthening as tolerated, Pain-control modalities Plan of Care Dates Plan of Care Start Date 05/03/18 Plan of Care End Date 07/12/18 Please Sign and Return: I have reviewed this Plan of Care and certify that the skilled therapy services above are required to meet the patient?s needs. Physician Signature Date Printed Name and Credentials Clinical Instructor Signature Printed Name and Credentials
--- NOTE | 2018-05-06 10:34 | PT.OTN ---
Current Diagnoses Dorsalgia, unspecified (05/06/18) Physical Therapy Treatment Note PT-OP-A Visit Information Start: 05/03/18 14:48 Freq: Status: Active Protocol: Document 05/06/18 09:45 DCW (Rec: 05/06/18 10:34 DCW [id number]) Out-Patient Physical Therapy Visit Information Visit Information Visit Type Treatment Note Visit Start Time 09:45 Visit Stop Time 10:30 Total Visit Minutes 45 Visit Number 2 Evaluation Information Evaluation Date 05/03/18 PT-OP-B Current Condition Start: 05/03/18 14:48 Freq: Status: Active Protocol: Document 05/03/18 13:45 DCW (Rec: 05/03/18 17:15 DCW [id number]) Current Condition History of Current Condition Onset Date 2 Months Current Complaints Severe radicular left back/hip pain History of Current Condition Pt is a 47 year old female presenting with a two month history of back and hip pain, complete with radicular symptoms along her posterior hip, wrapping along her lateral thigh to her anterior knee and occasionally down her anterior [place]. Pt additionally reports pain in her anterior hip/groin. Pt reports this began before , when she was arrianging furniture and helping set up their large tree, admits she probable lifted way too much, and then the following day, bent down to clean her fridge, felt something go, and had severe pain and could not stand up. Pt had a lumbar MRI, which uncovered mild disc desiccations and buldges, but nothing that was felt would result in her current symptoms . Pt notes that she was improving, and was probably almost 85% better, unfortunately her large dog ran into her two weeks ago, knocking her over, and she now feels like she is worse than before. Pt attempted to see a chiropractor, however two different practitioners refused to treat her and recommended she go to the ER for assessment for fractures. Resulting x-rays of the spine and hips were negative. Pt reports she can barely walk, and attended today's session using old crutches from her son that were 4-6 inches too short. Pt also is unable to academic coordinator the shower more than 4 minutes without intense pain . Pt reports fully straightening her hip or laying flat on her back results in L LE numbness and throbbing pain. Prior Treatments and Tests MRI: 1. Multilevel degenerative disc and facet disease, as well as ligamentum flavum hypertrophy and epidural lipomatosis. 2. Mild multilevel canal and foraminal stenoses. No neural impingement. - bart Sung M.D. on 03/07/2018 X-rays: No hip fracture or dislocation. No evidence of avascular necrosis. - bart Connolly M.D. on 04/22/2018 Treatment Goals Patient/Caregiver Goals Pt wants to decrease incidence of LE radiating pain and numbness Prior Functional Status Baseline Function- ADL's Independent Baseline Function- Mobility Independent Current Functional Impairments (Reported) Functional Limitations- ADL's Unable to stand more than 5 minutes without pain, difficulty showering Functional Limitations- Mobility/Gait Ambulates with ill-fitting axillary crutches PT-OP-C Subjective Start: 05/03/18 14:48 Freq: Status: Active Protocol: Document 05/06/18 09:45 DCW (Rec: 05/06/18 10:34 DCW [id number]) OP-PT Subjective Patient Comments Patient Comments Pt reports she had a long weekend, notes she was experiencing a lot of popping and cracking in her hip, and increased numbness down her [place]. PT-OP-F Manual Assessment Start: 05/03/18 14:48 Freq: Status: Active Protocol: Document 05/03/18 13:45 DCW (Rec: 05/03/18 17:15 DCW [id number]) Manual Assessments Soft Tissue Assessment Soft Tissue Mobility Assessment Tenderness to palpation: 4/4 - Palpation not allowed at left Piriformis, QL, and Psoas Joint Mobility Assessment Joint Mobility Assessment Pt cannot tolerate any passive ROM of left hip PT-OP-J Posture/Palpation/Skin Start: 05/03/18 14:48 Freq: Status: Active Protocol: Document 05/03/18 13:45 DCW (Rec: 05/03/18 17:15 DCW [id number]) Palpation Assessment Location One Palpation Location Left Piriformis Palpation Findings Soft Tissue Tightness Spasm Muscle Guarding Tenderness Trigger Point Palpation Details Increased radicular symptoms with palpation PT-OP-K Range of Motion Start: 05/03/18 14:48 Freq: Status: Active Protocol: Document 05/03/18 13:45 DCW (Rec: 05/03/18 17:15 DCW [id number]) Hip Goniometric Range of Motion Hip ROM Limitations Hip ROM Limitations Muscle Weakness Muscle Tone Pain Comments Pt unable to tolerate any passive ROM, pt most comfortable in semi-flexed position (~60?) PT-OP-L Special Tests Start: 05/03/18 14:48 Freq: Status: Active Protocol: Document 05/03/18 13:45 DCW (Rec: 05/03/18 17:15 DCW [id number]) Special Tests Hip Special Tests Hip Traction Test Results Increased pain Piriformis Test Results Unable to position Straight Leg Raise Test Results Unable to position Scour Test Test Results Unable to position YOEL Test Results Unable to position PT-OP-M Strength Start: 05/03/18 14:48 Freq: Status: Active Protocol: Document 05/03/18 13:45 DCW (Rec: 05/03/18 17:15 DCW [id number]) Hip Strength Hip Manual Muscle Testing Right Flexion (L2) 5 Normal Abduction 5 Normal Adduction 5 Normal External Rotation 4+ Good+ Internal Rotation 4+ Good+ Left Flexion (L2) 3 Fair Abduction 5 Normal Adduction 5 Normal External Rotation 4 Good Internal Rotation 4 Good PT-OP-Q Treatments Start: 05/03/18 14:48 Freq: Status: Active Protocol: Document 05/06/18 09:45 DCW (Rec: 05/06/18 10:34 DCW [id number]) Cardio Equipment Recumbent Elliptical (Biodex) Duration (Minutes) 4 Resistance 1 Manual Therapy Treatment Soft Tissue Mobilization Left QL Body Location Left QL Mobilization Type Strumming Sustained Pressure Intensity/Depth Superficial Body Position Sitting PT-OP-R Modalities Start: 05/03/18 14:48 Freq: Status: Active Protocol: Document 05/06/18 09:45 DCW (Rec: 05/06/18 10:34 DCW [id number]) Electric Stimulation Electric Stimulation Interferential Current (IFC) Body Location Lumbar Spine Duration (Minutes) 15 Intensity 10 Ultrasound Therapy Treatment Left Lumbar Paraspinals Treatment Duration (minutes) 8 Patient Position Sitting Coupling Medium Ultrasound Gel Frequency Setting (mHz) 1 Duty Cycle 100% Intensity Setting (w/cm2) 1.2 PT-OP-T Assessment and Plan Start: 05/03/18 14:48 Freq: Status: Active Protocol: Document 05/06/18 09:45 DCW (Rec: 05/06/18 10:34 DCW [id number]) Physical Therapy Assessment Impairments Impairments Activity Tolerance Functional Activities Functional Mobility Gait Pain Posture ROM Sensation Soft Tissue Mobility Strength Tone Goals Three Impairment L hip flexion weakness Story Editor Goal (LTG) Pt to increase MMT from 3/5 to 4/5 on left hip flexion Two Impairment Pt unable to tolerate standing >5 minutes Skilled Nursing Goal (LTG) Pt to tolerate standing 20 minutes without increased symptoms LTG Duration 07/01/18 One Impairment Pt does not have an appropriate home exercise program Short Term Goal (STG) Pt to be independent and complaint with and appropriate HEP STG Duration 05/31/18 Assessment Summary Assessment Pt could tolerate nearly nothing today, focused more on pain-control modalities. Light, superficial STM was excruciating for pt, she was unable to tolerate most positions, spent most of the session sitting with torso leaning forward supported by plinth. Physical Therapy Plan Frequency and Duration Frequency of Treatment 2x/Week Duration of Treatment 10 weeks Plan of Care Start Date 05/03/18 Plan of Care End Date 07/12/18 Therapeutic Interventions Therapeutic Interventions Aquatic Therapy Gait Training Home Exercise Program Joint Mobilizations Manual Therapy Neuromuscular Re-education Patient/Caregiver Education Self-Care/Home Management Soft Tissue Mobilization Taping Therapeutic Activities Therapeutic Exercises Modalities Cold Pack/Ice Massage Electric Stimulation Hot Packs Ultrasound Next Visit Focus/Plan Next Note Type Treatment Note Next Visit Plan Flexiibility, strengthening as tolerated, Pain-control modalities
--- NOTE | 2018-08-09 10:00 | PT.OTN ---
Current Diagnoses Dorsalgia, unspecified (05/06/18) Physical Therapy Treatment Note PT-OP-A Visit Information Start: 05/03/18 14:48 Freq: Status: Active Protocol: Document 05/06/18 09:45 DCW (Rec: 05/06/18 10:34 DCW [id number]) Out-Patient Physical Therapy Visit Information Visit Information Visit Type Treatment Note Visit Start Time 09:45 Visit Stop Time 10:30 Total Visit Minutes 45 Visit Number 2 Evaluation Information Evaluation Date 05/03/18 PT-OP-B Current Condition Start: 05/03/18 14:48 Freq: Status: Active Protocol: Document 05/03/18 13:45 DCW (Rec: 05/03/18 17:15 DCW [id number]) Current Condition History of Current Condition Onset Date 2 Months Current Complaints Severe radicular left back/hip pain History of Current Condition Pt is a 47 year old female presenting with a two month history of back and hip pain, complete with radicular symptoms along her posterior hip, wrapping along her lateral thigh to her anterior knee and occasionally down her anterior [place]. Pt additionally reports pain in her anterior hip/groin. Pt reports this began before , when she was arrianging furniture and helping set up their large tree, admits she probable lifted way too much, and then the following day, bent down to clean her fridge, felt something go, and had severe pain and could not stand up. Pt had a lumbar MRI, which uncovered mild disc desiccations and buldges, but nothing that was felt would result in her current symptoms . Pt notes that she was improving, and was probably almost 85% better, unfortunately her large dog ran into her two weeks ago, knocking her over, and she now feels like she is worse than before. Pt attempted to see a chiropractor, however two different practitioners refused to treat her and recommended she go to the ER for assessment for fractures. Resulting x-rays of the spine and hips were negative. Pt reports she can barely walk, and attended today's session using old crutches from her son that were 4-6 inches too short. Pt also is unable to vice president global digital marketing the shower more than 4 minutes without intense pain . Pt reports fully straightening her hip or laying flat on her back results in L LE numbness and throbbing pain. Prior Treatments and Tests MRI: 1. Multilevel degenerative disc and facet disease, as well as ligamentum flavum hypertrophy and epidural lipomatosis. 2. Mild multilevel canal and foraminal stenoses. No neural impingement. - bart Sung M.D. on 03/07/2018 X-rays: No hip fracture or dislocation. No evidence of avascular necrosis. - bart Connolly M.D. on 04/22/2018 Treatment Goals Patient/Caregiver Goals Pt wants to decrease incidence of LE radiating pain and numbness Prior Functional Status Baseline Function- ADL's Independent Baseline Function- Mobility Independent Current Functional Impairments (Reported) Functional Limitations- ADL's Unable to stand more than 5 minutes without pain, difficulty showering Functional Limitations- Mobility/Gait Ambulates with ill-fitting axillary crutches PT-OP-C Subjective Start: 05/03/18 14:48 Freq: Status: Active Protocol: Document 05/06/18 09:45 DCW (Rec: 05/06/18 10:34 DCW [id number]) OP-PT Subjective Patient Comments Patient Comments Pt reports she had a long weekend, notes she was experiencing a lot of popping and cracking in her hip, and increased numbness down her [place]. PT-OP-F Manual Assessment Start: 05/03/18 14:48 Freq: Status: Active Protocol: Document 05/03/18 13:45 DCW (Rec: 05/03/18 17:15 DCW [id number]) Manual Assessments Soft Tissue Assessment Soft Tissue Mobility Assessment Tenderness to palpation: 4/4 - Palpation not allowed at left Piriformis, QL, and Psoas Joint Mobility Assessment Joint Mobility Assessment Pt cannot tolerate any passive ROM of left hip PT-OP-J Posture/Palpation/Skin Start: 05/03/18 14:48 Freq: Status: Active Protocol: Document 05/03/18 13:45 DCW (Rec: 05/03/18 17:15 DCW [id number]) Palpation Assessment Location One Palpation Location Left Piriformis Palpation Findings Soft Tissue Tightness Spasm Muscle Guarding Tenderness Trigger Point Palpation Details Increased radicular symptoms with palpation PT-OP-K Range of Motion Start: 05/03/18 14:48 Freq: Status: Active Protocol: Document 05/03/18 13:45 DCW (Rec: 05/03/18 17:15 DCW [id number]) Hip Goniometric Range of Motion Hip ROM Limitations Hip ROM Limitations Muscle Weakness Muscle Tone Pain Comments Pt unable to tolerate any passive ROM, pt most comfortable in semi-flexed position (~60?) PT-OP-L Special Tests Start: 05/03/18 14:48 Freq: Status: Active Protocol: Document 05/03/18 13:45 DCW (Rec: 05/03/18 17:15 DCW [id number]) Special Tests Hip Special Tests Hip Traction Test Results Increased pain Piriformis Test Results Unable to position Straight Leg Raise Test Results Unable to position Scour Test Test Results Unable to position YOEL Test Results Unable to position PT-OP-M Strength Start: 05/03/18 14:48 Freq: Status: Active Protocol: Document 05/03/18 13:45 DCW (Rec: 05/03/18 17:15 DCW [id number]) Hip Strength Hip Manual Muscle Testing Right Flexion (L2) 5 Normal Abduction 5 Normal Adduction 5 Normal External Rotation 4+ Good+ Internal Rotation 4+ Good+ Left Flexion (L2) 3 Fair Abduction 5 Normal Adduction 5 Normal External Rotation 4 Good Internal Rotation 4 Good PT-OP-Q Treatments Start: 05/03/18 14:48 Freq: Status: Active Protocol: Document 05/06/18 09:45 DCW (Rec: 05/06/18 10:34 DCW [id number]) Cardio Equipment Recumbent Elliptical (Biodex) Duration (Minutes) 4 Resistance 1 Manual Therapy Treatment Soft Tissue Mobilization Left QL Body Location Left QL Mobilization Type Strumming Sustained Pressure Intensity/Depth Superficial Body Position Sitting PT-OP-R Modalities Start: 05/03/18 14:48 Freq: Status: Active Protocol: Document 05/06/18 09:45 DCW (Rec: 05/06/18 10:34 DCW [id number]) Electric Stimulation Electric Stimulation Interferential Current (IFC) Body Location Lumbar Spine Duration (Minutes) 15 Intensity 10 Ultrasound Therapy Treatment Left Lumbar Paraspinals Treatment Duration (minutes) 8 Patient Position Sitting Coupling Medium Ultrasound Gel Frequency Setting (mHz) 1 Duty Cycle 100% Intensity Setting (w/cm2) 1.2 PT-OP-T Assessment and Plan Start: 05/03/18 14:48 Freq: Status: Active Protocol: Document 08/09/18 09:58 DCW (Rec: 08/09/18 10:00 DCW [id number]) Physical Therapy Assessment Impairments Impairments Activity Tolerance Functional Activities Functional Mobility Gait Pain Posture ROM Sensation Soft Tissue Mobility Strength Tone Goals Three Impairment L hip flexion weakness Block Sorter Goal (LTG) Pt to increase MMT from 3/5 to 4/5 on left hip flexion Two Impairment Pt unable to tolerate standing >5 minutes Block Sorter Goal (LTG) Pt to tolerate standing 20 minutes without increased symptoms LTG Duration 07/01/18 One Impairment Pt does not have an appropriate home exercise program Short Term Goal (STG) Pt to be independent and complaint with and appropriate HEP STG Duration 05/31/18 Assessment Summary Assessment Following pt's first two appointments, pt canceled her other scheduled visits, and never rescheduled any other appointments. Pt has now not been seen for more than three months, and will be discharged from skilled PT at this time. Physical Therapy Plan Frequency and Duration Frequency of Treatment 2x/Week Duration of Treatment 10 weeks Plan of Care Start Date 05/03/18 Plan of Care End Date 07/12/18 Therapeutic Interventions Therapeutic Interventions Aquatic Therapy Gait Training Home Exercise Program Joint Mobilizations Manual Therapy Neuromuscular Re-education Patient/Caregiver Education Self-Care/Home Management Soft Tissue Mobilization Taping Therapeutic Activities Therapeutic Exercises Modalities Cold Pack/Ice Massage Electric Stimulation Hot Packs Ultrasound Discharge Physical Therapy Discharge Reasons No Longer Attending PT Next Visit Focus/Plan Next Note Type Discharge Summary
--- NOTE | 2018-08-09 10:03 | PT.OPDS ---
Current Diagnoses Dorsalgia, unspecified (05/06/18) Provider Visit Care Team Role Provider Type Isabel Sadler DO Attending Provider Physician Primary Care Provider Specialty: Family [facility] Address: [address] [place] [address], [id number] Email: [email or web address] Visit Number Visit Number 2 Discharge Summary PT-OP-B Current Condition Start: 05/03/18 14:48 Freq: Status: Active Protocol: Document 05/03/18 13:45 DCW (Rec: 05/03/18 17:15 DCW [id number]) Current Condition History of Current Condition Onset Date 2 Months Current Complaints Severe radicular left back/hip pain History of Current Condition Pt is a 47 year old female presenting with a two month history of back and hip pain, complete with radicular symptoms along her posterior hip, wrapping along her lateral thigh to her anterior knee and occasionally down her anterior [place]. Pt additionally reports pain in her anterior hip/groin. Pt reports this began before , when she was arrianging furniture and helping set up their large tree, admits she probable lifted way too much, and then the following day, bent down to clean her fridge, felt something go, and had severe pain and could not stand up. Pt had a lumbar MRI, which uncovered mild disc desiccations and buldges, but nothing that was felt would result in her current symptoms . Pt notes that she was improving, and was probably almost 85% better, unfortunately her large dog ran into her two weeks ago, knocking her over, and she now feels like she is worse than before. Pt attempted to see a chiropractor, however two different practitioners refused to treat her and recommended she go to the ER for assessment for fractures. Resulting x-rays of the spine and hips were negative. Pt reports she can barely walk, and attended today's session using old crutches from her son that were 4-6 inches too short. 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 Pt reports fully straightening her hip or laying flat on her back results in L LE numbness and throbbing pain. Prior Treatments and Tests MRI: 1. Multilevel degenerative disc and facet disease, as well as ligamentum flavum hypertrophy and epidural lipomatosis. 2. Mild multilevel canal and foraminal stenoses. No neural impingement. - bart Sung M.D. on 03/07/2018 X-rays: No hip fracture or dislocation. No evidence of avascular necrosis. - bart Connolly M.D. on 04/22/2018 Treatment Goals Patient/Caregiver Goals Pt wants to decrease incidence of LE radiating pain and numbness Prior Functional Status Baseline Function- ADL's Independent Baseline Function- Mobility Independent Current Functional Impairments (Reported) Functional Limitations- ADL's Unable to stand more than 5 minutes without pain, difficulty showering Functional Limitations- Mobility/Gait Ambulates with ill-fitting axillary crutches PT-OP-F Manual Assessment Start: 05/03/18 14:48 Freq: Status: Active Protocol: Document 05/03/18 13:45 DCW (Rec: 05/03/18 17:15 DCW [id number]) Manual Assessments Soft Tissue Assessment Soft Tissue Mobility Assessment Tenderness to palpation: 4/4 - Palpation not allowed at left Piriformis, QL, and Psoas Joint Mobility Assessment Joint Mobility Assessment Pt cannot tolerate any passive ROM of left hip PT-OP-J Posture/Palpation/Skin Start: 05/03/18 14:48 Freq: Status: Active Protocol: Document 05/03/18 13:45 DCW (Rec: 05/03/18 17:15 DCW [id number]) Palpation Assessment Location One Palpation Location Left Piriformis Palpation Findings Soft Tissue Tightness Spasm Muscle Guarding Tenderness Trigger Point Palpation Details Increased radicular symptoms with palpation PT-OP-K Range of Motion Start: 05/03/18 14:48 Freq: Status: Active Protocol: Document 05/03/18 13:45 DCW (Rec: 05/03/18 17:15 DCW [id number]) Hip Goniometric Range of Motion Hip ROM Limitations Hip ROM Limitations Muscle Weakness Muscle Tone Pain Comments Pt unable to tolerate any passive ROM, pt most comfortable in semi-flexed position (~60?) PT-OP-L Special Tests Start: 05/03/18 14:48 Freq: Status: Active Protocol: Document 05/03/18 13:45 DCW (Rec: 05/03/18 17:15 DCW [id number]) Special Tests Hip Special Tests Hip Traction Test Results Increased pain Piriformis Test Results Unable to position Straight Leg Raise Test Results Unable to position Scour Test Test Results Unable to position YOEL Test Results Unable to position PT-OP-M Strength Start: 05/03/18 14:48 Freq: Status: Active Protocol: Document 05/03/18 13:45 DCW (Rec: 05/03/18 17:15 DCW [id number]) Hip Strength Hip Manual Muscle Testing Right Flexion (L2) 5 Normal Abduction 5 Normal Adduction 5 Normal External Rotation 4+ Good+ Internal Rotation 4+ Good+ Left Flexion (L2) 3 Fair Abduction 5 Normal Adduction 5 Normal External Rotation 4 Good Internal Rotation 4 Good PT-OP-T Assessment and Plan Start: 05/03/18 14:48 Freq: Status: Active Protocol: Document 08/09/18 09:58 DCW (Rec: 08/09/18 10:00 DCW [id number]) Physical Therapy Assessment Impairments Impairments Activity Tolerance Functional Activities Functional Mobility Gait Pain Posture ROM Sensation Soft Tissue Mobility Strength Tone Goals Three Impairment L hip flexion weakness Detention Goal (LTG) Pt to increase MMT from 3/5 to 4/5 on left hip flexion Two Impairment Pt unable to tolerate standing >5 minutes Lay Up Operator Goal (LTG) Pt to tolerate standing 20 minutes without increased symptoms LTG Duration 07/01/18 One Impairment Pt does not have an appropriate home exercise program Short Term Goal (STG) Pt to be independent and complaint with and appropriate HEP STG Duration 05/31/18 Assessment Summary Assessment Following pt's first two appointments, pt canceled her other scheduled visits, and never rescheduled any other appointments. Pt has now not been seen for more than three months, and will be discharged from skilled PT at this time. Physical Therapy Plan Frequency and Duration Frequency of Treatment 2x/Week Duration of Treatment 10 weeks Plan of Care Start Date 05/03/18 Plan of Care End Date 07/12/18 Therapeutic Interventions Therapeutic Interventions Aquatic Therapy Gait Training Home Exercise Program Joint Mobilizations Manual Therapy Neuromuscular Re-education Patient/Caregiver Education Self-Care/Home Management Soft Tissue Mobilization Taping Therapeutic Activities Therapeutic Exercises Modalities Cold Pack/Ice Massage Electric Stimulation Hot Packs Ultrasound Discharge Physical Therapy Discharge Reasons No Longer Attending PT Next Visit Focus/Plan Next Note Type Discharge Summary
== END 2018-08-13 11:33 | disposition home or self-care (01) ==
LOC: PHYS 09:45
PROVIDERS: PCP Family Medicine; Visit Provider Family Medicine
DX: M54.9 Dorsalgia, unspecified (principal)
CPT/HCPCS: 97032; 97035; 97110; 97140; 97163

== ENCOUNTER → 2022-05-13 10:43 | Outpatient (CLI) | payer OTHER, MEDICAID, SELFPAY ==
--- NOTE | 2022-05-13 10:45 | DI.CT.S_ITS ---
PROCEDURE: CT SOFT TISSUE NECK WO CON INDICATIONS: Localized swelling, mass and lump, neck TECHNIQUE: Non-contrast 3.0 mm axial sections acquired from the sella to the aortic arch. 3 mm thick coronal and sagittal reformats were generated. For radiation dose reduction, the following was used: automated exposure control. Please note, lack of intravenous contrast limits assessment of solid and vascular structures, particularly for neoplasm and trauma COMPARISON: None. FINDINGS: Skull Base: The visualized intracranial contents, skull, and orbits are unremarkable. Visualized paranasal sinuses are clear. Pharynx and Larynx: The nasopharyngeal airway is patent and midline. Parapharyngeal soft tissues including palatine tonsils and base of the tongue are normal. Retropharyngeal space unremarkable. Normal appearance of the false and true vocal cords. Muscles and Fascial Planes: There is a suggestion of midline nodule associated with the marker in the infrahyoid neck measuring approximately 1.6 x 2.0 by 1.2 cm. Is uncertain at this is associated with the thyroid Lymph Nodes: No evidence of adenopathy. Vasculature: Unremarkable. Submandibular and Parotid Glands: Normal in size and attenuation. Thyroid: Unremarkable. No enlarged or calcified nodules. Bones: No acute fracture. No osteolytic or blastic lesion is evident. Normal bone mineralization. Lung Apices: The visualized lung apices are clear. IMPRESSION: 1. Suggestion of soft tissue nodule in the infrahyoid neck adjacent or anterior to the thyroid. Evaluation is significantly limited without contrast. Consider follow-up contrast CT neck and MRI Approved by: Pawan Arreola M.D. on 05/13/2022 at 12:47
== END ==
PROVIDERS: Referring Provider Otolaryngology; Visit Provider Otolaryngology
DX: R22.1 Localized swelling, mass and lump, neck (principal)
CPT/HCPCS: 70490

== ENCOUNTER 2022-05-26 18:31 | Emergency (ER) | payer OTHER, MEDICAID, SELFPAY ==
[2022-05-26 19:42] VITALS: BP 218/107; PULSE 92; RESP 20; TEMP 37; O2SAT 97; BMI 34.6
[2022-05-26 20:20] LABS: Bacteria Urine None Seen; RBC Urine 1-5/HPF (0-5/HPF); WBC Urine 1-5/HPF (0-5/HPF)
--- NOTE | 2022-05-26 22:59 | ED.ABDPAIN ---
HPI - Abdominal Pain General Chief Complaint: Abdominal Pain Stated Complaint: ABD pain Time Seen by Provider: 05/26/22 19:14 Source: patient Mode of arrival: Ambulatory History of Present Illness HPI narrative: 51-year-old female daily smoker presents with her significant other and a chief complaint of burning and at times severe upper abdominal pain that seems to come and go over the past few days. She states it seems to be much worse when she eats and does have occasion to radiate to her back. She is been nauseated denies any vomiting. She has no fever or chills. She denies any change in bowel habits and denies dysuria, frequency or urgency. She had been seen and evaluated by her primary care office earlier today and had labs that were unremarkable. She had her gallbladder surgically removed a few years ago. She states she has not extremely healthy diet and denies any change, she has no alcohol denies spicy or fatty foods. She states that she takes 4-600 mg of Motrin daily. Related Data Home Medications Medication Instructions Recorded Confirmed omega-3 acid ethyl esters 1 gram 1 gm PO QDAY ##0 10/16/12 07/26/21 capsule (Lovaza) pyridoxine (vitamin B6) 25 mg ##0 10/16/12 07/26/21 tablet Previous Rx's Medication Instructions Recorded hydrocodone 5 mg-acetaminophen 325 1 tab PO Q6H PRN pain #30 tabs 03/03/18 mg tablet diazepam 5 mg tablet (Valium) 5 mg PO BID PRN muscle spasm #10 04/18/18 tabs meloxicam 7.5 mg tablet (Mobic) 7.5 mg PO DAILY PRN pain (scale 04/18/18 score 4-6) #20 tabs prednisone 20 mg tablet 40 mg PO DAILY #10 tabs 04/18/18 cyclobenzaprine 5 mg tablet 5 mg PO TID PRN muscle spasm #20 04/19/18 tabs cyclobenzaprine 10 mg tablet 10 mg PO TID PRN muscle spasm #20 04/22/18 tabs hydrocodone 5 mg-acetaminophen 325 1 tab PO Q6H PRN pain #10 tabs 04/22/18 mg tablet ([place]) hydroxyzine HCl 25 mg tablet 25 mg PO TID PRN anxiety 10 days 04/14/22 #30 tabs pantoprazole 40 mg tablet,delayed 40 mg PO DAILY #30 tabs 05/27/22 release (Protonix) Allergies Allergy/AdvReac Type Severity Reaction Status Date / Time Penicillins [PENICILLINS] Allergy Unknown Verified 07/26/21 12:43 ondansetron AdvReac Severe Gastrointestinal Verified 05/26/22 23:30 Upset Review of Systems Review of Systems Narrative: GENERAL: Denies chills, fatigue, malaise, fever, sweats. HEENT: Denies sinus pain, ear pain, sore throat, difficulty swallowing, dizziness. RESPIRATORY: Denies dyspnea, cough, wheezing, hemoptysis, sputum. CARDIOVASCULAR: Denies chest pain, palpitations, orthopnea, edema, GASTROINTESTINAL: See HPI : Denies dysuria, frequency, incontinence, hematuria, urinary retention. MUSCULOSKELETAL: denies weakness, joint pain, or bony pain SKIN: Denies rash, skin lesions, or other NEUROLOGIC: Denies weakness, headache, numbness, change in speech, confusion, seizures, incoordination. PSYCHIATRIC: No concerning psychosocial issues. 12 point review of systems is negative except for those stated above Patient History Medical History Abnormal Pap smear of cervix (~2004) Cervical spine disease Chicken pox (1978) Ectopic (2005) Foot pain (2011) Hayfever History of heavy periods HPV (human papilloma virus) infection Lump in neck (07/2015) Migraines (2006) Ovarian cyst (11/2015) Painful menstrual periods PID (acute pelvic inflammatory disease) (11/21/15) Plantar fasciitis (2011) Plantar warts PTSD (post-traumatic stress disorder) Surgical History Anesthesia complication History of unilateral salpingectomy (2005) Status post cholecystectomy (2004) Family History Grandmother Parkinson's disease Broken hip Father Gangrene Mother Stroke Grandfather Brain tumor Sister No problems noted. Sister No problems noted. Grandmother No problems noted. Social History Smoking Status: Current some day smoker alcohol intake: never substance use type: does not use Smoking Status: Current some day smoker Substance Use Type: marijuana Exam Narrative Exam Narrative: GENERAL: [51] year old patient appears stated age. Well-developed patient, in mild distress. HEAD: Atraumatic. Normocephalic. EYES: Pupils equal round and reactive. Extraocular motions intact. No scleral icterus. No injection or drainage. ENT: Nose without bleeding, purulent drainage. Throat without erythema, tonsillar hypertrophy or exudate. Airway patent. NECK: Trachea midline. Non tender CARDIOVASCULAR: Regular rate and rhythm without murmurs, gallops, or rubs. RESPIRATORY: Clear to auscultation. Breath sounds equal bilaterally. No wheezes, rales, or rhonchi. GASTROINTESTINAL: Abdomen soft, moderate epigastric tenderness, nondistended. EXTREMITIES: No edema or joint tenderness. BACK: Nontender without deformity or crepitance. No flank tenderness. NEURO: AOx3. SKIN: No rash or erythema of visible areas Initial Vital Signs Initial Vital Signs: Vital Signs Temperature 98.6 F 05/26/22 19:42 Pulse Rate 92 H 05/26/22 19:42 Respiratory Rate 20 05/26/22 19:42 Blood Pressure 218/107 H 05/26/22 19:42 Pulse Oximetry 97 05/26/22 19:42 Oxygen Delivery Method Room Air 05/26/22 19:42 Course Orders Ordered: ED Orders 05/26/22 20:00 Urine Culture Stat Urine Microscopic Stat 05/26/22 23:10 Complete Blood Count AUTO DIFF Stat Comprehensive Metabolic Panel Stat Lipase Stat Discontinued Medications Sodium Chloride (Normal Saline 0.9%) 1,000 mls @ 1,000 mls/hr IV BOLUS ONE Stop: 05/27/22 00:13 Last Infusion: 05/27/22 00:34 Dose: 0 mls/hr Documented By: Admin: 05/26/22 23:38 Dose: 1,000 mls/hr Documented By: RACHEL Ondansetron HCl (Ondansetron 4 Mg/2 Ml Inj) 4 mg IV NOW ONE Stop: 05/26/22 23:15 Last Admin: 05/26/22 23:28 Dose: Not Given Documented By: RACHEL Pantoprazole Sodium (Pantoprazole 40 Mg Vial) 40 mg IV NOW ONE Stop: 05/26/22 23:15 Last Admin: 05/26/22 23:38 Dose: 40 mg Documented By: RACHEL Vital Signs Vital signs: Vital Signs - 8 hr 05/26/22 19:42 05/26/22 23:05 05/26/22 23:42 Temperature 98.6 F Pulse Rate 92 H Respiratory Rate 20 Blood Pressure 218/107 H 198/108 H 193/89 H Pulse Oximetry 97 Oxygen Delivery Method Room Air 05/27/22 00:01 Temperature Pulse Rate Respiratory Rate Blood Pressure 177/84 H Pulse Oximetry Oxygen Delivery Method MDM - Abdominal Pain Lab Data 05/26/22 23:10 05/26/22 23:10 Labs: Lab Results 05/26/22 05/26/22 05/26/22 Range/Units 20:00 23:10 23:10 WBC 8.2 (4.5-11.0) X10^3/uL RBC 4.66 (4.0-5.2) X10^6/uL Hgb 13.5 (12.0-16.0) g/dL Hct 41.0 (36-46) % MCV 87.9 (80-100) fL MCH 28.9 (26-34) PG MCHC 32.9 (30-36) % RDW 13.1 (11.6-14.8) % Plt Count 334 (150-400) X10^3/uL Neut % (Auto) 52.6 (50-75) % Lymph % (Auto) 29.7 (25-40) % Larue % (Auto) 7.7 (3-14) % Eos % (Auto) 9.1 H (2-4) % Baso % (Auto) 0.9 (0-2) % Neut # (Auto) 4300 (9564-8997) /uL Lymph # (Auto) 2400 (0867-1263) /uL Larue # (Auto) 600 (0-900) /uL Eos # (Auto) 700 H (0-450) /uL Baso # (Auto) 100 (0-100) /uL Sodium 136 L (137-145) mmol/L Potassium 3.4 (3.4-5.1) mmol/L Chloride 102 (98-107) mmol/L Carbon Dioxide 27 (22-32) mmol/L BUN 8 (7-17) mg/dL Creatinine 0.57 (0.52-1.04) mg/dL Estimated GFR > 60 (>60) mL/min BUN/Creatinine Ratio 14.0 (6-22) Glucose 86 (70-100) mg/dL Calcium 8.9 (8.4-10.2) mg/dL Total Bilirubin 0.4 (0.2-1.3) mg/dL AST 32 (14-36) IU/L ALT 40 H (<35) IU/L Alkaline Phosphatase 83 (38-126) U/L Total Protein 7.0 (6.3-8.2) g/dL Albumin 4.0 (3.5-5.0) g/dL Globulin 3.0 (1.7-4.1) g/dL Albumin/Globulin Ratio 1.3 (1.0-2.8) Lipase 35 (23-300) U/L Urine RBC 1-5/hpf (0-5/HPF) Urine WBC 1-5/hpf (0-5/HPF) Urine Bacteria None seen (None) Point of care testing: Point of Care Testing Test Results Negative Urine Dip Bedside Urine Glucose Negative Bedside Urine Bilirubin - Negative Bedside Urine Ketone - Negative Urine Specific [place] 1.010 Bedside Urine Occult Blood +/- Bedside Urine pH 6 Bedside Urine Protein - Negative Bedside Urine Urobilinogen - Negative Bedside Urine Nitrite - Negative Bedside Urine Leukocytes - Negative Esterase MDM Narrative Medical decision making narrative: CC: 51-year-old female with epigastric pain worse with eating Complicating co-morbidities: Prior gallbladder surgery Data collected from: Patient Medical records reviewed: Prior notes reviewed in our EMR Differential considered, but not limited to: Bowel obstruction, gastric or peptic ulcer, gastritis, bowel obstruction versus other Exam documented above, pertinent findings include: Epigastric pain, otherwise abdomen soft, bowel sounds present in all 4 quadrants, lungs clear to auscultation bilaterally Lab Test results independently reviewed as above. Pertinent findings: No leukocytosis or left shift, no anemia, no electrolyte abnormality or change in renal function Independently reviewed EKG as above Treatments: Protonix Re-evaluations: Patient is feeling somewhat better Discussion: Patient with increasing episodes of epigastric abdominal pain with worsening severity duration of pain. She does have a surgically absent gallbladder. Her pain is worse when she eats and multiple diagnoses considered as noted above. Labs are reassuring and patient does have improved symptoms. I recommended CT of the abdomen with IV contrast and after extensive discussion of risks and benefit including worsening illness or even patient would prefer to hold off and follow up with her primary care provider. She understands that for any change in symptoms shearing return immediately. Disposition: see below, along with detailed discharge instructions that have been reviewed with patient as well as indications for ED re-evaluation and additional outpatient follow up Discharge Plan Departure Patient Disposition: Home Clinical Impression: Abdominal pain Instructions: DI for Abdominal Pain-Adult Activity Restrictions/Additional Instructions: *You have been diagnosed with [abdominal pain] * As we discussed your history and physical exam as well as labs and imaging are very reassuring. There is no evidence of any severe diagnoses that would require a specific or immediate intervention. *What to do: *Please continue to take your regular medications as directed. [x ] New medication prescriptions sent to your pharmacy: [ [facility]] *Please follow up with your primary care provider in 2-3 days, call for an appointment. Let them know you were seen in the Emergency Department and that we ask that you be seen in follow up. We will electronically transmit a record of today's note if your PCP is in our system *Please consider a clear liquid diet for the next 24-48 hours and then slowly advance to regular as tolerated. Also, try to avoid alcohol, nicotine, caffeine, spicy, acidic or fatty foods as this may worsen your symptoms *If you do not have a primary care provider please contact the [facility] Resource line at [phone]. They will ask some questions about your medical history and help get you set up with a doctor in the community. *Return to Emergency Department if you should have any new, worsening or concerning symptoms, such as [fever greater than 101 F, shaking chills, worsening pain, persistent vomiting or other bothersome symptoms] Prescriptions: New pantoprazole [Protonix] 40 mg tablet,delayed release (DR/EC) 40 mg PO DAILY Qty: 30 0RF No Action hydroxyzine HCl 25 mg tablet 25 mg PO TID PRN (Reason: anxiety) 10 Days Qty: 30 1RF omega-3 acid ethyl esters [Lovaza] 1 GM capsule 1 gm PO QDAY Qty: 0 pyridoxine (vitamin B6) 25 MG tablet Qty: 0 hydrocodone-acetaminophen 5-325 mg tablet 1 tab PO Q6H PRN (Reason: pain) Qty: 30 0RF cyclobenzaprine 5 mg tablet 5 mg PO TID PRN (Reason: muscle spasm) Qty: 20 0RF prednisone 20 mg tablet 40 mg PO DAILY Qty: 10 0RF meloxicam [Mobic] 7.5 mg tablet 7.5 mg PO DAILY PRN (Reason: pain (scale score 4-6)) Qty: 20 0RF diazepam [Valium] 5 mg tablet 5 mg PO BID PRN (Reason: muscle spasm) Qty: 10 0RF cyclobenzaprine 10 mg tablet 10 mg PO TID PRN (Reason: muscle spasm) Qty: 20 0RF hydrocodone-acetaminophen [[place]] 5-325 mg tablet 1 tab PO Q6H PRN (Reason: pain) Qty: 10 0RF Referrals: Miscellaneous,DoctorMD [Primary Care Provider] - López Cole MD [Physician] - Stand Alone Forms: Patient Portal/API
[2022-05-26 23:05] VITALS: BP 198/108
[2022-05-26 23:30] LABS: Add Manual Diff / Slide Review NO; Basophils Absolute Auto 100 /uL (0-100); Basophils Percent Auto 0.9 % (0-2); Eosinophils Absolute Auto 700 /uL (0-450); Eosinophils Percent Auto 9.1 % (2-4); Hemoglobin 13.5 g/dL (12.0-16.0); Lymphocytes Absolute Auto 2400 /uL (1100-4500); Lymphocytes Percent Auto 29.7 % (25-40); Mean Corpuscular HGB Conc 32.9 % (30-36); Mean Corpuscular Hemoglobin 28.9 PG (26-34); Mean Corpuscular Volume 87.9 fL (80-100); Monocytes Absolute Auto 600 /uL (0-900); Monocytes Percent Auto 7.7 % (3-14); Neutrophils Absolute Auto 4300 /uL (1500-7000); Neutrophils Percent Auto 52.6 % (50-75); Platelet Count 334 X10^3/uL (150-400); Red Blood Cell Count 4.66 X10^6/uL (4.0-5.2); Red Cell Distribution Width 13.1 % (11.6-14.8); White Blood Cell Count 8.2 X10^3/uL (4.5-11.0)
[2022-05-26] MEDS: SODIUM CHLORIDE 0.9% 1,000 ML 1000 ML IV (23:38)
[2022-05-26] MEDS: PANTOPRAZOLE 40 MG VIAL IV (23:38)
[2022-05-26 23:42] VITALS: BP 193/89
[2022-05-26 23:46] LABS: Alanine Aminotransferase 40 IU/L (<35); Albumin Globulin Ratio 1.3 (1.0-2.8); Alkaline Phosphatase 83 U/L (38-126); Aspartate Aminotransferase 32 IU/L (14-36); Bilirubin Total 0.4 mg/dL (0.2-1.3); Blood Urea Nitrogen 8 mg/dL (7-17); Calcium 8.9 mg/dL (8.4-10.2); Carbon Dioxide 27 mmol/L (22-32); Chloride 102 mmol/L (98-107); Estimated Glomerular Filt Rate > 60 mL/min (>60); Glucose 86 mg/dL (70-100); HEMOLYSIS < 15 (0-50); Lipase 35 U/L (23-300); Potassium 3.4 mmol/L (3.4-5.1); Sodium 136 mmol/L (137-145)
[2022-05-27 00:01] VITALS: BP 177/84
== END 2022-05-27 01:13 | disposition home or self-care (01) ==
PROVIDERS: Emergency Provider Emergency Medicine
DX: R10.13 Epigastric pain (principal); R11.0 Nausea
CPT/HCPCS: 36415; 80053; 81003; 81015; 81025; 83690; 85025; 87086; 96361; 96374; 99284; C9113

== ENCOUNTER 2023-10-24 12:30 | Outpatient (RCR) | payer OTHER, MEDICAID, SELFPAY | END 2023-10-24 14:30 | LOC: CAR 12:30 | PROVIDERS: Referring Provider Internal Medicine Advanced Heart Failure and Transplant Cardiology; Visit Provider Internal Medicine Advanced Heart Failure and Transplant Cardiology | DX: I21.3 ST elevation (STEMI) myocardial infarction of unspecified site (principal) | CPT/HCPCS: 93798 ==

== ENCOUNTER → 2023-11-06 13:25 | Outpatient (CLI) | payer OTHER, MEDICAID, SELFPAY | PROVIDERS: Visit Provider Physician Assistant Surgical | DX: K13.29 Other disturbances of oral epithelium, including tongue (principal) | CPT/HCPCS: 87210 ==